=== PATIENT | female | born 1955 ===

== ENCOUNTER 2017-04-07 08:33 | Outpatient (CLI) | payer MEDICAID ==
--- NOTE | 2017-04-07 11:18 | Ultrasound Report ---
RENAL ULTRASOUND: 04/07/17 CLINICAL: Renal cyst. FINDINGS: High resolution ultrasound demonstrated normal nondilated renal collecting systems. Normal renal contours and normal overall echogenicity of the kidneys. A round brightly echogenic solid mass of the midportion of the right kidney measures 1.9 x 1.6 x 1.5 cm. A left lower pole cyst measures 1.7 x 1.6 x 1.6 cm. No other mass or cyst. No renal calculi. The right kidney measures 10.2 x 4.7 x 4.4-cm. The renal parenchyma measures 1.1-cm in thickness. The left kidney measures 10.7 x 4.9 x 5.3-cm. The renal parenchyma measures 1.3-cm in thickness. A normally distended and normal urinary bladder. IMPRESSION: 1. A 2 cm echogenic right renal mass. 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 Recommend additional imaging with either CT or MRI without and with contrast. 2. A benign 1.7 cm left lower pole renal cyst.
== END 2017-04-07 08:34 | disposition home or self-care (01) ==
LOC: SPVWC 08:33
PROVIDERS: ATTEND Internal Medicine Nephrology
DX: N28.1 Cyst of kidney, acquired (principal); N28.89 Other specified disorders of kidney and ureter
CPT/HCPCS: 76770